=== PATIENT | male | born 1970 | race Caucasian/White ===

== ENCOUNTER 2018-11-07 11:19 | Emergency (ER) | payer SELFPAY ==
[2018-11-07] MEDS ORDERED: Ketorolac 60 MG/2 ML SDV IM ONE (11:24)
[2018-11-07] MEDS ORDERED: HYDROmorphone 1 MG/ML Syringe IM ONE (11:25)
[2018-11-07] MEDS ORDERED: Ondansetron 4 MG Tab.DIS PO ONE (11:25)
[2018-11-07] MEDS ORDERED: Ketorolac 30 MG/ML SDV IVPUSH ONE (11:27)
[2018-11-07] MEDS ORDERED: Sodium Chloride 0.9% 10 ML Syringe FLUSH PRN (11:27)
--- NOTE | 2018-11-07 11:32 | EDM.PDOC ---
ED HPI GENERAL MEDICAL PROBLEM - General Chief Complaint: Genitourinary Problem Stated Complaint: ABD PAIN Time Seen by Provider: 11/07/18 11:20 Source of Information: Reports: Patient History Limitations: Reports: No Limitations - History of Present Illness INITIAL COMMENTS - FREE TEXT/NARRATIVE: 47 yo male presents with abrupt onset of severe pain in his R low back that radiates to his R testicle. He has nausea, but no vomiting or fever. Pain began at 0800h today and has progressed. He has no hx of kidney stones. Onset: Today Onset Date: 11/07/18 Onset Time: 08:00 Duration: Hour(s):, Getting Worse Location: Reports: Back (R low) Quality: Reports: Stabbing Severity: Severe Improves with: Reports: None Worsens with: Reports: Other (unknown) Context: Reports: Other (see HPI) Associated Symptoms: Reports: Nausea/Vomiting (no vomiting so far.). Denies: Fever/Chills, Rash Treatments PLANNING ASSOCIATE: Reports: Other (see below) (none) Lower Abdominal Pain Score (Numeric/FACES): 10 - Related Data Allergies Allergy/AdvReac Type Severity Reaction Status Date / Time No Known Allergies Allergy Verified 11/07/18 11:21 Home Meds: Home Meds Acetaminophen/HYDROcodone [Grandy 325-5 MG] 1 - 2 tab PO Q6H PRN #20 tab [Rx] Cephalexin [Keflex] 500 mg PO QID #30 capsule 11/07/18 [Rx] Clindamycin HCl 300 mg PO QID #30 capsule 11/07/18 [Rx] Past Medical History - Past Health History Medical/Surgical History: Denies Medical/Surgical History Gastrointestinal History: Reports: None Musculoskeletal History: Reports: Back Pain, Chronic - Infectious Disease History Infectious Disease History: Reports: Chicken Pox - Past Surgical History HEENT Surgical History: Reports: None GI Surgical History: Reports: Hernia, Abdominal Musculoskeletal Surgical History: Reports: None Social & Family History - Family History Cardiac: Reports: None Respiratory: Reports: Asthma Neurological: Reports: CVA - Caffeine Use Caffeine Use: Reports: Coffee, Soda ED ROS GENERAL - Review of Systems Review Of Systems: See Below Constitutional: Reports: No Symptoms HEENT: Reports: No Symptoms Respiratory: Reports: No Symptoms Cardiovascular: Reports: No Symptoms Endocrine: Reports: No Symptoms GI/Abdominal: Reports: Abdominal Pain (R groin area), Nausea. Denies: Black Stool, Bloody Stool, Constipation, Diarrhea, Distension, Hematemesis, Hematochezia, Vomiting : Reports: Flank Pain (R low back). Denies: Hematuria Musculoskeletal: Reports: No Symptoms Skin: Reports: No Symptoms Neurological: Reports: No Symptoms ED EXAM, RENAL/ - Physical Exam Exam: See Below Exam Limited By: No Limitations General Appearance: Alert, WD/WN, Moderate Distress Eye Exam: Bilateral Eye: Normal Inspection Ears: Normal External Exam, Normal Canal, Hearing Grossly Normal Nose: Normal Inspection, No Blood Throat/Mouth: Normal Inspection, Normal Lips, Normal Oropharynx, Normal Voice, No Airway Compromise Head: Atraumatic, Normocephalic Neck: Normal Inspection Respiratory/Chest: No Respiratory Distress, Lungs Clear, Normal Breath Sounds, No Accessory Muscle Use Cardiovascular: Regular Rate, Rhythm, No Edema GI/Abdominal: Soft, No Distention, Tender (mild R sided abdominal tenderness with palpation. ). No: Non-Tender, Distended, Guarding, Rigid, Rebound Back Exam: Normal Inspection. No: CVA Tenderness (R), CVA Tenderness (L) Extremities: Normal Inspection, Normal Range of Motion, Non-Tender, No Pedal Edema Neurological: Alert, Oriented, CN II-XII Intact, Normal Cognition, No Motor/ Sensory Deficits Psychiatric: Normal Affect, Normal Mood Skin Exam: Warm, Intact, Normal Color, No Rash, Diaphoretic Course - Vital Signs Last Recorded V/S: Last Vital Signs Temp 34.0 C L 11/07/18 11:39 Pulse 73 11/07/18 11:39 Resp 16 11/07/18 11:39 BP 147/85 H 11/07/18 11:39 Pulse Ox 100 11/07/18 11:39 - Orders/Labs/Meds Orders: Active Orders 24 hr Category Date Time Status UA W/MICROSCOPIC [URIN] Stat Lab 11/07/18 13:22 Ordered Sodium Chloride 0.9% [Saline Flush] Med 11/07/18 11:27 Active 10 ml FLUSH ASDIRECTED PRN cefTRIAXone [Rocephin] 1 gm Med 11/07/18 13:20 Active Sodium Chloride 0.9% [Normal Saline] 50 ml IV ONETIME Saline Lock Insert [OM.PC] Routine Oth 11/07/18 11:27 Ordered Medication Orders Ceftriaxone Sodium 1 gm/ (Sodium Chloride) 50 mls @ 100 mls/hr IV ONETIME ONE Stop: 11/07/18 13:49 Sodium Chloride (Saline Flush) 10 ml FLUSH ASDIRECTED PRN PRN Reason: Keep Vein Open Last Admin: 11/07/18 11:35 Dose: 10 ml Meds: Medications Generic Name Dose Route Start Last Admin Trade Name Freq PRN Reason Stop Dose Admin Ceftriaxone Sodium 1 gm/ 50 mls @ 100 mls/hr 11/07/18 13:20 Sodium Chloride IV 11/07/18 13:49 ONETIME ONE Sodium Chloride 10 ml 11/07/18 11:27 11/07/18 11:35 Saline Flush FLUSH 10 ml ASDIRECTED PRN Administration Keep Vein Open Discontinued Medications Generic Name Dose Route Start Last Admin Trade Name Freq PRN Reason Stop Dose Admin Clindamycin HCl 300 mg 11/07/18 13:20 Cleocin PO 11/07/18 13:21 ONETIME ONE Hydromorphone HCl 1 mg 11/07/18 11:25 11/07/18 11:33 Dilaudid IM 11/07/18 11:26 1 mg ONETIME ONE Administration Ketorolac Tromethamine 60 mg 11/07/18 11:24 11/07/18 12:35 Toradol IM 11/07/18 11:25 Not Given ONETIME ONE Ketorolac Tromethamine 30 mg 11/07/18 11:27 11/07/18 11:34 Toradol IVPUSH 11/07/18 11:28 30 mg ONETIME ONE Administration Ondansetron HCl 4 mg 11/07/18 11:25 11/07/18 11:35 Zofran Odt PO 11/07/18 11:26 4 mg ONETIME ONE Administration - Radiology Interpretation Free Text/Narrative:: CT soft tissue neck-findings suggestive of infection CT Results Date: 11/07/18 Departure - Departure Time of Disposition: 13:45 Disposition: Home, Self-Care 01 Condition: Good Clinical Impression: Infection of scalp - Discharge Information *PRESCRIPTION DRUG MONITORING PROGRAM REVIEWED*: No *COPY OF PRESCRIPTION DRUG MONITORING REPORT IN PATIENT PRIYANK: No Prescriptions: Acetaminophen/HYDROcodone [Grandy 325-5 MG] 1 - 2 tab PO Q6H PRN #20 tab PRN Reason: Pain Cephalexin [Keflex] 500 mg PO QID #30 capsule Clindamycin HCl 300 mg PO QID #30 capsule Referrals: PCP,None [Primary Care Provider] - Forms: ED Department Discharge Additional Instructions: Take both cephalexin and clindamycin every 6 hrs as directed, your next dose of cephalexin should be tomorrow after lunch and clindamycin today after 7:30 pm. Take ibuprofen and/or acetaminophen for pain relief. Substitute Grandy for acetaminophen if more pain relief is required. Recheck with your provider on Monday. - My Orders Last 24 Hours: My Active Orders 11/07/18 11:27 Sodium Chloride 0.9% [Saline Flush] 10 ml FLUSH ASDIRECTED PRN Saline Lock Insert [OM.PC] Routine 11/07/18 13:20 cefTRIAXone [Rocephin] 1 gm Sodium Chloride 0.9% [Normal Saline] 50 ml IV ONETIME 11/07/18 13:22 UA W/MICROSCOPIC [URIN] Stat - Assessment/Plan Last 24 Hours: My Active Orders 11/07/18 11:27 Sodium Chloride 0.9% [Saline Flush] 10 ml FLUSH ASDIRECTED PRN Saline Lock Insert [OM.PC] Routine 11/07/18 13:20 cefTRIAXone [Rocephin] 1 gm Sodium Chloride 0.9% [Normal Saline] 50 ml IV ONETIME 11/07/18 13:22 UA W/MICROSCOPIC [URIN] Stat
[2018-11-07 11:37] VITALS: BP 147/85
[2018-11-07] MEDS ORDERED: cefTRIAXone 1 GM in Sodium Chloride 0.9% 50 ML IV ONE (13:20)
[2018-11-07] MEDS ORDERED: Clindamycin HCl 150 MG Cap PO ONE (13:20)
--- NOTE | 2018-11-07 15:11 | CRLCT ---
INDICATION: Right flank pain. TECHNIQUE: CT abdomen and pelvis without contrast. COMPARISON: None. FINDINGS: Lower chest: Atelectasis is in the right lower lobe. Liver: Normal in size and attenuation. No masses. Gallbladder and bile ducts: No stones or inflammation. No biliary dilatation. Pancreas: Unremarkable. No mass or inflammation. Spleen: Normal in size. No masses. Adrenal glands: Normal in size. No nodules. Kidneys: A 3 mm stone in the distal right ureter on series 2, image 127 is causing moderate hydronephrosis. There is also significant periureteral fluid/edema. Therefore additional nonobstructive stones remaining in the right kidney. Single small stone is in the left kidney. GI tract: Unremarkable. Normal in caliber. No sign of mass or inflammation. Normal appendix. Vasculature: Unremarkable. Lymph nodes: No lymphadenopathy. Abdominal wall/Omentum/Peritoneum: Unremarkable. No sign of mass or infiltration. No free air or significant free fluid. Pelvis: Unremarkable. No pelvic masses. Bones: Degenerative disc spondylosis is at L5-S1. Otherwise unremarkable. IMPRESSION: 1. 3 mm stone in the distal right ureter is causing moderate hydronephrosis. There is significant periureteral fluid/edema. 2. Bilateral nephrolithiasis. Dictated by Fermín Delgadillo MD @ 11/07/2018 3:10:25 PM Dictated by: Fermín Delgadillo MD @ 11/07/2018 15:10:28 (Electronically Signed)
== END 2018-11-07 15:39 | disposition home or self-care (01) ==
LOC: JP.ED 11:19
DX: N13.2 Hydronephrosis with renal and ureteral calculous obstruction (principal)
CPT/HCPCS: 74176; 81001; 96365; 96372; 96375; 99284; A9270; J1170; J1885

== ENCOUNTER 2018-11-09 07:42 | Emergency (ER) | payer SELFPAY ==
[2018-11-09] MEDS ORDERED: Ondansetron 4 MG/2 ML SDV IVPUSH ONE (07:45)
[2018-11-09] MEDS ORDERED: Sodium Chloride 0.9% 1,000 ML IV SCH ×2 (07:45→09:15)
[2018-11-09] MEDS ORDERED: Ketorolac 30 MG/ML SDV IVPUSH ONE (07:45)
[2018-11-09] MEDS ORDERED: Tamsulosin 0.4 MG Cap.ER PO ONE (07:48)
[2018-11-09] MEDS ORDERED: HYDROmorphone 0.5 MG/0.5 ML Syringe IVPUSH ONE (08:05)
[2018-11-09 09:20] VITALS: BP 133/90
--- NOTE | 2018-11-09 09:20 | EDM.PDOC ---
ED HPI GENERAL MEDICAL PROBLEM - General Chief Complaint: Genitourinary Problem Stated Complaint: MEDICAL Time Seen by Provider: 11/09/18 09:15 Source of Information: Reports: Patient History Limitations: Reports: No Limitations - History of Present Illness INITIAL COMMENTS - FREE TEXT/NARRATIVE: pt arrived very uncomfortable on the rt side. The abdomanal pain did radiate to his rt testicle. He did have some burning on urination. Onset: Other (pt states he has been able to stay quite comfortable until today, He has not had a fever. He clearly has not passed the stone. ) Duration: Hour(s): Location: Reports: Abdomen Associated Symptoms: Reports: Other ( severe abdomanal pain radiating to the rt teasticle. ) Right Flank Pain Score (Numeric/FACES): 2 - Related Data Allergies Allergy/AdvReac Type Severity Reaction Status Date / Time No Known Allergies Allergy Verified 11/07/18 11:21 Home Meds: Home Meds Acetaminophen/oxyCODONE [Percocet 325-5 MG] 1 each PO Q4H PRN #10 tab 11/07/18 [ Rx] Ondansetron [Zofran ODT] 4 mg PO Q6H PRN #7 tab.dis 11/07/18 [Rx] Past Medical History - Past Health History Medical/Surgical History: Denies Medical/Surgical History Gastrointestinal History: Reports: None Musculoskeletal History: Reports: Back Pain, Chronic - Infectious Disease History Infectious Disease History: Reports: Chicken Pox - Past Surgical History HEENT Surgical History: Reports: None GI Surgical History: Reports: Hernia, Abdominal Musculoskeletal Surgical History: Reports: None Social & Family History - Family History Cardiac: Reports: None Respiratory: Reports: Asthma Neurological: Reports: CVA - Caffeine Use Caffeine Use: Reports: Coffee, Soda ED ROS GENERAL - Review of Systems Review Of Systems: See Below Constitutional: Reports: No Symptoms HEENT: Reports: No Symptoms Respiratory: Reports: No Symptoms Cardiovascular: Reports: No Symptoms Endocrine: Reports: No Symptoms GI/Abdominal: Reports: Abdominal Pain, Other ( Pain radiates to the rt testicle. ) : Reports: Dysuria, Flank Pain Musculoskeletal: Reports: No Symptoms Skin: Reports: No Symptoms ED EXAM, GI/ABD - Physical Exam Exam: See Below Text/Narrative:: pt arrived very uncomfortable with rt sided pain radiating to the rt testicle. He is burning when he passes his urine. He did have some fluid and edema in the rt ureter when he had the cat scan 2 days ago. At that time he was found to have a 3 mm stone in the lower rt ureter. Exam Limited By: No Limitations General Appearance: Alert, Severe Distress, Other (pt was barely able to lie on the table. ) Ears: Normal TMs Nose: Normal Inspection Head: Atraumatic Neck: Normal Inspection Respiratory/Chest: No Respiratory Distress Cardiovascular: Regular Rate, Rhythm GI/Abdominal Exam: Other (pt is having severe pain in the rt abdoman with pain radiating to the rt testicle. He is having some dysuria. ) (Male) Exam: Deferred Rectal (Males) Exam: Deferred Back Exam: Normal Inspection Extremities: Normal Inspection Neurological: Alert, Oriented, Normal Cognition Course - Vital Signs Last Recorded V/S: Last Vital Signs Temp 35.4 C 11/09/18 07:59 Pulse 82 11/09/18 09:20 Resp 18 11/09/18 07:59 BP 133/90 11/09/18 09:20 Pulse Ox 97 11/09/18 07:59 - Orders/Labs/Meds Labs: Laboratory Tests 11/09/18 11/09/18 11/09/18 Range/Units 09:20 09:24 09:24 WBC 14.7 H (4.5-11.0) K/uL RBC 4.98 (4.30-5.90) M/uL Hgb 14.9 (12.0-15.0) g/dL Hct 44.6 (40.0-54.0) % MCV 90 (80-98) fL MCH 30 (27-31) pg MCHC 33 (32-36) % Plt Count 316 (150-400) K/uL Neut % (Auto) 88 H (36-66) % Lymph % (Auto) 5 L (24-44) % [place] % (Auto) 7 H (2-6) % Eos % (Auto) 0 L (2-4) % Baso % (Auto) 0 (0-1) % Sodium 137 L (140-148) mmol/L Potassium 4.3 (3.6-5.2) mmol/L Chloride 102 (100-108) mmol/L Carbon Dioxide 27 (21-32) mmol/L Anion Gap 12.3 (5.0-14.0) mmol/L BUN 15 (7-18) mg/dL Creatinine 1.5 H D (0.8-1.3) mg/dL Est Cr Clr Drug Dosing 50.98 mL/min Estimated GFR (MDRD) 50 L (>60) Glucose 95 (74-106) mg/dL Calcium 8.6 (8.5-10.1) mg/dL Urine Color Yellow Urine Appearance Clear Urine pH 5.0 (4.5-8.0) Ur Specific [place] 1.010 (1.008-1.030) Urine Protein Negative (NEGATIVE) mg/dL Urine Glucose (UA) Normal (NEGATIVE) mg/dL Urine Ketones 50 H (NEGATIVE) mg/dL Urine Occult Blood Large (NEGATIVE) Urine Nitrite Negative (NEGAITVE) Urine Bilirubin Negative (NEGATIVE) Urine Urobilinogen Normal (NORMAL) mg/dL Ur Leukocyte Esterase Negative (NEGATIVE) Urine RBC 0-5 (0-5) Urine WBC Not seen (0-5) Ur Epithelial Cells Not seen Amorphous Sediment Not seen Urine Bacteria Not seen Urine Mucus Moderate Meds: Medications Discontinued Medications Generic Name Dose Route Start Last Admin Trade Name Freq PRN Reason Stop Dose Admin Hydromorphone HCl 0.5 mg 11/09/18 08:05 11/09/18 08:11 Dilaudid IVPUSH 11/09/18 08:06 0.5 mg ONETIME ONE Administration Hydromorphone HCl 1 mg 11/09/18 10:39 11/09/18 11:07 Dilaudid IVPUSH 11/09/18 10:40 1 mg ONETIME ONE Administration Sodium Chloride 1,000 mls @ 999 mls/hr 11/09/18 07:45 11/09/18 07:58 Normal Saline IV 999 mls/hr ASDIRECTED JOSE Administration Sodium Chloride 1,000 mls @ 999 mls/hr 11/09/18 09:15 11/09/18 10:21 Normal Saline IV 999 mls/hr ASDIRECTED JOSE Administration Ketorolac Tromethamine 30 mg 11/09/18 07:45 11/09/18 07:58 Toradol IVPUSH 11/09/18 07:46 30 mg ONETIME ONE Administration Ondansetron HCl 4 mg 11/09/18 07:45 11/09/18 07:57 Zofran IVPUSH 11/09/18 07:46 4 mg ONETIME ONE Administration Tamsulosin HCl 0.4 mg 11/09/18 07:48 11/09/18 07:57 Flomax PO 11/09/18 07:49 0.4 mg ONETIME ONE Administration - Re-Assessments/Exams Free Text/Narrative Re-Assessment/Exam: 11/09/18 09:43 pt did have any definite sign of infection in the urine. His wbc was 14,000. 11/09/18 10:57 US was done which did not show a marked hydo. He has a stone which is just ready to go into the bladder. Pt has chose at this time to give it another day or 2 to see if he can pass the stone. 11/11/18 07:21 just before leaving the pt went to the and passed a stone. He was still having some discomfort when he left but he was much better Departure - Departure Time of Disposition: 10:59 Disposition: Home, Self-Care 01 Condition: Fair Clinical Impression: Right ureteral calculus - Discharge Information Instructions: Kidney Stones, [id number] Referrals: PCP,None [Primary Care Provider] - Forms: ED Department Discharge Care Plan Goals: push fluids, flomax .4 1 tab daily, torodol 10mg qid, percocet 5/325 q6h prn for pain. Pt will have his US and cat scan on disc with him. If he does not pass the stone in the next 2 days he should be seen at [facility] in [place] and he will have a Urology consult. Pt will not go to urology because he passed a stone just 5 minutes prior to leaving.
[2018-11-09] MEDS ORDERED: HYDROmorphone 1 MG/ML Syringe IVPUSH ONE (10:39)
--- NOTE | 2018-11-09 12:19 | CRLUS ---
CLINICAL HISTORY: Distal right ureteral calculus. COMPARISON: CT abdomen pelvis dated 11/07/2018 TECHNIQUE: 2D fragoso scale and color Doppler images were acquired of the right kidney and urinary bladder. FINDINGS: Sonographic imaging demonstrates resolution of the right hydronephrosis. There is no evidence of perinephric fluid. Imaging of the bladder demonstrates successful passage of the 3 mm stone into the posterior bladder lumen. There is a slight decrease in amplitude of the right ureteral jet as compared to the left which would be consistent with residual edema within the distal right ureter following stone passage. IMPRESSION: Successful passage of the 3 mm stone into the posterior bladder lumen. Dictated by Ovidio Barrett MD @ 11/09/2018 12:16:41 PM Dictated by: Ovidio Barrett MD @ 11/09/2018 12:18:07 (Electronically Signed)
[2018-11-14 08:19] LABS: CA OXALATE MONOHYDR. 95 % (.); COLOR Brown (.)
== END 2018-11-09 12:10 | disposition home or self-care (01) ==
LOC: JP.ED 07:42
DX: N13.2 Hydronephrosis with renal and ureteral calculous obstruction (principal)
CPT/HCPCS: 36415; 76775; 80048; 81001; 82360; 85025; 96361; 96374; 96375; 96376; 99284; A9270; J1170; J1885; J2405; J7030

== ENCOUNTER 2021-03-03 17:00 | Emergency (ER) | payer SELFPAY ==
[2021-03-03 17:26] VITALS: BP 156/99; PULSE 113
--- NOTE | 2021-03-03 17:44 | EDM.PDOC ---
<Юлия Antonio - Last Filed: 03/03/21 18:36> ED HPI GENERAL MEDICAL PROBLEM - General Chief Complaint: Lower Extremity Injury/Pain Stated Complaint: LEFT KNEE PAIN Time Seen by Provider: 03/03/21 17:15 Source of Information: Reports: Patient History Limitations: Reports: No Limitations - History of Present Illness INITIAL COMMENTS - FREE TEXT/NARRATIVE: 50 year old male presents with left knee pain that started today. He reports hearing a "crunching" sound a few weeks ago, was sore in that knee for 3 days and then improved. Today he was walking when he heard 3 "crunches" again and then more severe pain followed. He reports he can only toe touch weight bare and even that is extremely painful. He denies previous injury to his knee, no deformity redness, or swelling noted. No other joint pains, no other injuries. Some tingling to 3rd, 4th and 5th toe after incident today. He did not try any Tylenol, ibuprofen, heat or ice. Onset: Today, Sudden Onset Date: 03/03/21 Duration: Hour(s):, Constant Location: Reports: Lower Extremity, Left Quality: Reports: Sharp Severity: Severe Improves with: Reports: Immobilization, Rest Worsens with: Reports: Movement Associated Symptoms: Reports: No Other Symptoms Left Knee Pain Score (Numeric/FACES): 7 - Related Data Allergies Allergy/AdvReac Type Severity Reaction Status Date / Time No Known Allergies Allergy Verified 03/03/21 17:22 Home Meds: Home Meds NK [No Known Home Meds] 03/03/21 [History] Past Medical History - Past Health History Medical/Surgical History: Denies Medical/Surgical History Gastrointestinal History: Reports: None Genitourinary History: Reports: Renal Calculus Musculoskeletal History: Reports: Back Pain, Chronic Neurological History: Reports: None Psychiatric History: Reports: None Endocrine/Metabolic History: Reports: None Dermatologic History: Reports: None - Infectious Disease History Infectious Disease History: Reports: Chicken Pox - Past Surgical History HEENT Surgical History: Reports: None GI Surgical History: Reports: Hernia, Abdominal Musculoskeletal Surgical History: Reports: None Social & Family History - Family History Cardiac: Reports: None Respiratory: Reports: Asthma Neurological: Reports: CVA - Tobacco Use Tobacco Use Status *Q: Current Every Day Tobacco User Years of Tobacco use: 35 Packs/Tins Daily: 0.5 - Caffeine Use Caffeine Use: Reports: Coffee, Soda - Recreational Drug Use Recreational Drug Use: No Review of Systems - Review of Systems Review Of Systems: See Below Constitutional: Reports: No Symptoms. Denies: Diaphoresis, Fever, Weakness Eyes: Reports: No Symptoms Ears: Reports: No Symptoms. Denies: Dizziness Nose: Reports: No Symptoms Mouth/Throat: Reports: No Symptoms Respiratory: Reports: No Symptoms. Denies: Shortness of Breath, Wheezing, Pleuritic Chest Pain, Cough Cardiovascular: Reports: No Symptoms. Denies: Chest Pain, Edema GI/Abdominal: Reports: No Symptoms. Denies: Abdominal Pain, Diarrhea, Nausea, Vomiting Genitourinary: Reports: No Symptoms. Denies: Dysuria, Hematuria Musculoskeletal: Reports: Joint Pain (left knee) Skin: Reports: No Symptoms. Denies: Diaphoresis, Wound, Lesions, Lumps Neurological: Reports: Tingling (left 3rd, 4th, and 5th toes.). Denies: Confusion, Dizziness, Headache Psychiatric: Reports: No Symptoms ED EXAM, GENERAL - Physical Exam Free Text/Narrative:: Jasper is a well appearing 50 year old male, resting on cart with left knee elevated on pillow. Pain along the site of the left medial meniscus with palpation, pain with extension, severe with grimacing and moaning. No deformity, edema, erythema, or other obvious signs of injury. Pedal pulses present, no pedal edema. Respirations regular and non labored. skin warm and dry. Alert and oriented. Abdomen is soft and non tender. Exam Limited By: No Limitations General Appearance: Alert, WD/WN, No Apparent Distress Ears: Normal External Exam Nose: Normal Inspection, No Blood Throat/Mouth: Normal Inspection, Normal Lips Head: Atraumatic Neck: Normal Inspection, Non-Tender, Full Range of Motion Respiratory/Chest: No Respiratory Distress, Lungs Clear, Normal Breath Sounds. No: Respiratory Distress, Crackles, Wheezing Cardiovascular: Normal Peripheral Pulses, Regular Rate, Rhythm, No Edema GI/Abdominal: Soft, Non-Tender (Male) Exam: Deferred Rectal (Males) Exam: Deferred Back Exam: Normal Inspection, Full Range of Motion Extremities: Normal Inspection. No: Pedal Edema, Redness Neurological: Alert, Oriented, Normal Cognition Psychiatric: Normal Affect, Normal Mood Skin Exam: Warm, Dry, Intact, No Rash. No: Ecchymosis, Erythema, Increased Warmth Lymphatic: No Adenopathy Course - Vital Signs Text/Narrative:: left knee xray ordered, patient agrees with plan of care. Departure - Departure Disposition: Home, Self-Care 01 Condition: Good Clinical Impression: Knee injury - Discharge Information Instructions: How to Use a Knee Immobilizer, [id number] Referrals: PCP,None [Primary Care Provider] - Forms: ED Department Discharge Additional Instructions: Your knee xray was negative for fracture, it is likely a ligament/ meniscus tear. You should follow up with orthopedics, the consult is in and they will call you tomorrow for an appointment, use madina wrap and crutches for comfort. Rest, ice and elevation for pain control. [place] prescription sent, this is a narcotic pain medicaiton and can cause drowsiness, impaired decision making, and constipation. Please dont drive or work while taking this medication. Aslo use IBU for pain control with the norco, they work well together. Please return if you have any new complains, new numbness or tinging, or new injuries. Sepsis Event Note (ED) - Evaluation Sepsis Screening Result: No Definite Risk <Edil Deal - Last Filed: 03/04/21 07:08> ED EXAM, GENERAL - Physical Exam Exam: See Below Course - Vital Signs Last Recorded V/S: Last Vital Signs Temp 97.5 F 03/03/21 17:21 Pulse 113 H 03/03/21 17:21 Resp 22 H 03/03/21 17:21 BP 156/99 H 03/03/21 17:21 Pulse Ox 95 03/03/21 17:21 - Orders/Labs/Meds Orders: Active Orders 24 hr Category Date Time Status Consult to Orthopedic Clinic [CONS] Routine Cons 03/03/21 18:27 Active Knee 3V Lt [CR] Stat Exams 03/03/21 17:50 Taken DME for Discharge [COMM] Stat Oth 03/03/21 18:20 Ordered Departure - Departure Time of Disposition: 18:55 - My Orders Last 24 Hours: My Active Orders 03/03/21 18:27 Consult to Orthopedic Clinic [CONS] Routine - Assessment/Plan Last 24 Hours: My Active Orders 03/03/21 18:27 Consult to Orthopedic Clinic [CONS] Routine Attestation - Student - Attestation Statement Attestation Statement: I personally performed or re-performed the physical examination and medical decision making. I have verified all student documentation or findings, including history, physical exam and/or medical decision making.
--- NOTE | 2021-03-04 09:20 | CR ---
Knee 3V Lt CLINICAL HISTORY: Injury FINDINGS: No acute fracture or dislocation is noted. There are no osseous lesions. Articular surfaces are smooth. There may be a small joint effusion. Impression: Possible small joint effusion
== END 2021-03-03 18:55 | disposition home or self-care (01) ==
LOC: JP.ED 17:00
DX: S89.92XA Unspecified injury of left lower leg, initial encounter (principal); Z72.0 Tobacco use; X50.9XXA Other and unspecified overexertion or strenuous movements or postures, initial encounter
CPT/HCPCS: 73562-26-LT; 73562-LT; 99283-25